=== PATIENT | female | born 1990 | race Caucasian/White ===

== ENCOUNTER 2023-10-24 06:28 | Day surgery (SDC) | payer OTHER, SELFPAY ==
[2023-10-24] VITALS (11 sets, daily range): BP systolic 84–120; BP diastolic 57–98; BMI 18.9
[2023-10-24] MEDS: NORMOSOL-R 1000 IV (08:48)
[2023-10-24] MEDS: TYLENOL 1000 MG PO (08:48)
== END 2023-10-24 12:15 | disposition home or self-care (01) ==
LOC: SDS 06:28
PROVIDERS: ATTENDING PHYSICIAN Surgery
DX: K64.4 Residual hemorrhoidal skin tags (principal)
CPT/HCPCS: 46230